=== PATIENT | female | born 1955 | race Caucasian/White ===

== ENCOUNTER 2022-02-14 08:23 | Outpatient (CLI) | payer OTHER ==
[~2022-02-14 08:23] MED LIST: ISOVUE-370 76%-LOCM 1 ML ONE
[2022-02-14 08:58] LABS: Estimated GFR-MDRD - POC Greater than 90
== END 2022-02-14 08:24 | disposition home or self-care (01) ==
LOC: BICCT 08:23
PROVIDERS: ATTEND Urology
DX: R10.2 Pelvic and perineal pain (principal); R39.15 Urgency of urination; N28.1 Cyst of kidney, acquired; K57.30 Diverticulosis of large intestine without perforation or abscess without bleeding; Z87.448 Personal history of other diseases of urinary system
CPT/HCPCS: 74178; 82565